=== PATIENT | female | born 1980 | race American Indian/Alaskan Native ===

== ENCOUNTER 2020-06-18 05:15 | Emergency (ER) | payer OTHER ==
[2020-06-18 07:51] LABS: Bilirubin,Urine NEG (Negative); Blood,Urine LG (Negative); Color,Urine Yellow (Yellow); Urobilinogen,Urine < 2.0 mg/dL (<2.0)
[2020-06-18 08:12] LABS: Basophils # (Auto) 0.2 K/mm3 (0.0-0.1); Basophils % (Auto) 1.7 % (0.0-1.8); Eosinophils # (Auto) 0.3 K/mm3 (0.0-0.4); Eosinophils % (Auto) 2.9 % (0.0-4.3); Hematocrit 30.7 % (30.3-42.9); Hemoglobin 10.2 gm/dl (10.1-14.3); Lymphocytes # (Auto) 3.6 K/mm3 (1.2-5.4); Lymphocytes % (Auto) 31.7 % (13.4-35.0); Mean Corpuscular HGB Conc 33 % (30-34); Mean Corpuscular Volume 74 fl (79-97); Monocytes # (Auto) 0.6 K/mm3 (0.0-0.8); Monocytes % (Auto) 5.7 % (0.0-7.3); Platelet Count 298 K/mm3 (140-440); Red Blood Count 4.13 M/mm3 (3.65-5.03); Red Cell Distribution Width 21.7 % (13.2-15.2)
[2020-06-18 08:42] LABS: INR 0.94 (0.87-1.13)
[2020-06-18 08:43] LABS: Partial Thromboplastin Time 27.5 Sec. (24.2-36.6)
[2020-06-18 08:58] LABS: Albumin 3.7 g/dL (3.9-5); Blood Urea Nitrogen 9 mg/dL (7-17); Hemolysis Index 14
[2020-06-18 08:59] LABS: BUN/Creatinine Ratio 15
[2020-06-18 09:10] LABS: Alanine Aminotransferase < 5 units/L (7-56)
[2020-06-18 09:18] VITALS: BP 148/80
[2020-06-18] MEDS ORDERED: KETOROLAC 60 MG/2 ML INJ IM ONE (09:20)
--- NOTE | 2020-06-18 09:20 | Emergency Department Report ---
ED General Adult HPI - General Chief complaint: Vaginal Bleeding Stated complaint: SEVERE VAGINAL BLEEDING Time Seen by Provider: 06/18/20 08:46 Source: patient Mode of arrival: Ambulatory Limitations: No Limitations - History of Present Illness Initial comments: Patient presents to the emergency department the chief complaint of vaginal bleeding that started 2 days ago. Patient states she has a history of abnormal menstrual cycles and was started on Provera in November. Patient states between November and January of this year she was on Provera and it was taken off with normal cycles in February and March. Patient states that for the months of April and May she had no cycle. He states for the last 2 days she has had profuse vaginal bleeding. Patient states that she been seen by Dr. Beck for her dysfunctional uterine bleeding. -: Sudden Severity scale (0 -10): 0 Consistency: constant Improves with: none Worsens with: none Associated Symptoms: denies other symptoms Treatments Prior to Arrival: none - Related Data Previous Rx's Medication Instructions Recorded Last Taken Type Ketorolac [Toradol] 10 mg PO Q6H PRN #12 tablet 06/18/20 Unknown Rx Allergies Allergy/AdvReac Type Severity Reaction Status Date / Time No Known Allergies Allergy Unverified 06/18/20 05:34 ED Review of Systems ROS: Stated complaint: SEVERE VAGINAL BLEEDING Other details as noted in HPI Comment: All other systems reviewed and negative Constitutional: denies: chills, fever Eyes: denies: eye pain, eye discharge, vision change ENT: denies: ear pain, throat pain Respiratory: denies: cough, shortness of breath, wheezing Cardiovascular: denies: chest pain, palpitations Endocrine: no symptoms reported Gastrointestinal: denies: abdominal pain, nausea, diarrhea Genitourinary: denies: urgency, dysuria, discharge Musculoskeletal: denies: back pain, joint swelling, arthralgia Skin: denies: rash, lesions Neurological: denies: headache, weakness, paresthesias Psychiatric: denies: anxiety, depression Hematological/Lymphatic: denies: easy bleeding, easy bruising ED Past Medical Hx - Past Medical History Previous Medical History?: Yes - Surgical History Past Surgical History?: Yes Additional Surgical History: Left knee (ACL) - Social History Smoking Status: Never Smoker Substance Use Type: None - Medications Home Medications: Home Medications Medication Instructions Recorded Confirmed Last Taken Type Ketorolac [Toradol] 10 mg PO Q6H PRN #12 tablet 06/18/20 Unknown Rx ED Physical Exam - General Limitations: No Limitations General appearance: alert, in no apparent distress - Head Head exam: Present: atraumatic, normocephalic - Eye Eye exam: Present: normal appearance - ENT ENT exam: Present: mucous membranes moist - Neck Neck exam: Present: normal inspection - Respiratory Respiratory exam: Present: normal lung sounds bilaterally. Absent: respiratory distress - Cardiovascular Cardiovascular Exam: Present: regular rate, normal rhythm. Absent: systolic murmur, diastolic murmur, rubs, gallop - GI/Abdominal GI/Abdominal exam: Present: soft, normal bowel sounds. Absent: distended, tend erness - Rectal Rectal exam: Present: deferred - External exam: Present: other (deferred) Speculum exam: Present: other (deferred) Bi-manual exam: Present: other (deferred) - Extremities Exam Extremities exam: Present: normal inspection - Back Exam Back exam: Present: normal inspection - Neurological Exam Neurological exam: Present: alert, oriented X3 - Psychiatric Psychiatric exam: Present: normal affect, normal mood - Skin Skin exam: Present: warm, dry, intact, normal color. Absent: rash ED Course Vital Signs 06/18/20 06/18/20 05:22 08:16 Temperature 98.6 F Pulse Rate 93 H Respiratory 18 Rate Blood Pressure 139/86 148/80 O2 Sat by Pulse 100 Oximetry ED Medical Decision Making - Lab Data Result diagrams: 06/18/20 05:47 06/18/20 08:03 Lab Results 06/18/20 06/18/20 06/18/20 Range/Units 05:47 05:47 06:27 WBC 11.3 H (4.5-11.0) K/mm3 RBC 4.13 (3.65-5.03) M/mm3 Hgb 10.2 (10.1-14.3) gm/dl Hct 30.7 (30.3-42.9) % MCV 74 L (79-97) fl MCH 25 L (28-32) pg MCHC 33 (30-34) % RDW 21.7 H (13.2-15.2) % Plt Count 298 (140-440) K/mm3 Lymph % (Auto) 31.7 (13.4-35.0) % [place] % (Auto) 5.7 (0.0-7.3) % Eos % (Auto) 2.9 (0.0-4.3) % Baso % (Auto) 1.7 (0.0-1.8) % Lymph # (Auto) 3.6 (1.2-5.4) K/mm3 [place] # (Auto) 0.6 (0.0-0.8) K/mm3 Eos # (Auto) 0.3 (0.0-0.4) K/mm3 Baso # (Auto) 0.2 H (0.0-0.1) K/mm3 Seg Neutrophils % 58.0 (40.0-70.0) % Seg Neutrophils # 6.6 (1.8-7.7) K/mm3 PT (12.2-14.9) Sec. INR (0.87-1.13) APTT (24.2-36.6) Sec. Sodium (137-145) mmol/L Potassium (3.6-5.0) mmol/L Chloride (98-107) mmol/L Carbon Dioxide (22-30) mmol/L Anion Gap mmol/L BUN (7-17) mg/dL Creatinine (0.6-1.2) mg/dL Estimated GFR ml/min BUN/Creatinine Ratio % Glucose (65-100) mg/dL Calcium (8.4-10.2) mg/dL Total Bilirubin (0.1-1.2) mg/dL AST (5-40) units/L ALT (7-56) units/L Alkaline Phosphatase (35-129) units/L Total Protein (6.3-8.2) g/dL Albumin (3.9-5) g/dL Albumin/Globulin Ratio % HCG, Quant < 2 (0-4) mIU/mL Urine Color Yellow (Yellow) Urine Turbidity Slightly-cloudy (Clear) Urine pH 5.0 (5.0-7.0) Ur Specific [place] 1.019 (1.003-1.030) Urine Protein 30 mg/dl (Negative) mg/dL Urine Glucose (UA) Neg (Negative) mg/dL Urine Ketones Neg (Negative) mg/dL Urine Blood Lg (Negative) Urine Nitrite Neg (Negative) Urine Bilirubin Neg (Negative) Urine Urobilinogen < 2.0 (<2.0) mg/dL Ur Leukocyte Esterase Neg (Negative) Urine WBC (Auto) 1.0 (0.0-6.0) /HPF Urine RBC (Auto) 5.0 (0.0-6.0) /HPF Blood Type 06/18/20 06/18/20 06/18/20 Range/Units 08:03 08:03 Unknown WBC (4.5-11.0) K/mm3 RBC (3.65-5.03) M/mm3 Hgb (10.1-14.3) gm/dl Hct (30.3-42.9) % MCV (79-97) fl MCH (28-32) pg MCHC (30-34) % RDW (13.2-15.2) % Plt Count (140-440) K/mm3 Lymph % (Auto) (13.4-35.0) % [place] % (Auto) (0.0-7.3) % Eos % (Auto) (0.0-4.3) % Baso % (Auto) (0.0-1.8) % Lymph # (Auto) (1.2-5.4) K/mm3 [place] # (Auto) (0.0-0.8) K/mm3 Eos # (Auto) (0.0-0.4) K/mm3 Baso # (Auto) (0.0-0.1) K/mm3 Seg Neutrophils % (40.0-70.0) % Seg Neutrophils # (1.8-7.7) K/mm3 PT 12.8 (12.2-14.9) Sec. INR 0.94 (0.87-1.13) APTT 27.5 (24.2-36.6) Sec. Sodium 135 L (137-145) mmol/L Potassium 4.2 (3.6-5.0) mmol/L Chloride 103.2 (98-107) mmol/L Carbon Dioxide 22 (22-30) mmol/L Anion Gap 14 mmol/L BUN 9 (7-17) mg/dL Creatinine 0.6 (0.6-1.2) mg/dL Estimated GFR > 60 ml/min BUN/Creatinine Ratio 15 % Glucose 158 H (65-100) mg/dL Calcium 9.0 (8.4-10.2) mg/dL Total Bilirubin 0.20 (0.1-1.2) mg/dL AST < 5 L (5-40) units/L ALT < 5 L (7-56) units/L Alkaline Phosphatase 82 (35-129) units/L Total Protein 7.3 (6.3-8.2) g/dL Albumin 3.7 L (3.9-5) g/dL Albumin/Globulin Ratio 1.0 % HCG, Quant (0-4) mIU/mL Urine Color (Yellow) Urine Turbidity (Clear) Urine pH (5.0-7.0) Ur Specific [place] (1.003-1.030) Urine Protein (Negative) mg/dL Urine Glucose (UA) (Negative) mg/dL Urine Ketones (Negative) mg/dL Urine Blood (Negative) Urine Nitrite (Negative) Urine Bilirubin (Negative) Urine Urobilinogen (<2.0) mg/dL Ur Leukocyte Esterase (Negative) Urine WBC (Auto) (0.0-6.0) /HPF Urine RBC (Auto) (0.0-6.0) /HPF Blood Type AB POSITIVE - Radiology Data Radiology results: report reviewed - Medical Decision Making Discussed results with patient Critical care attestation.: If time is entered above; I have spent that time in minutes in the direct care of this critically ill patient, excluding procedure time. ED Disposition Clinical Impression: DUB (dysfunctional uterine bleeding), Fibroid, Endometrial polyp, Ovarian cyst Disposition: TO HOME OR SELFCARE Is pt being admited?: No Does the pt Need Aspirin: No Condition: Stable Instructions: Dysfunctional Uterine Bleeding (ED), Uterine Fibroids (ED), Ovarian Cyst (ED) Additional Instructions: return if worse Referrals: MIKE FAGAN MD [Staff Physician] - 3-5 Days Time of Disposition: 11:37
--- NOTE | 2020-06-18 11:01 | Ultrasound Report ---
ULTRASOUND PELVIS COMPLETE ULTRASOUND TRANSVAGINAL INDICATION / CLINICAL INFORMATION: Vaginal bleeding. TECHNIQUE: Transabdominal and Transvaginal. Duplex Color Doppler used: Yes. COMPARISON: None available FINDINGS: UTERUS: Anteverted - Appearance (if present): No significant abnormality. - Size in cm (if present): 9.4 x 3.9 x 5.4 cm. - Endometrial Complex (if present): There is an echogenic area with increased vascularity in the endo metrium measuring 1.5 x 1.0 x 1.6 cm which may represent an endometrial polyp. Thickness in cm (if me asured) = 0.15 cm - Mass lesions: An approximate 1.5 cm hypoechoic fundal fibroid is identified. No large submucosal fi broid. - Additional findings: None. RIGHT ADNEXA: A 1.6 cm cyst is identified. Normal color Doppler blood flow. The right ovary measures 3.4 x 1.9 x 2.1 cm LEFT ADNEXA: No significant ovarian cyst or mass. Normal color Doppler blood flow. The left ovary michelle sures 2.2 x 4.0 x 2.7 cm URINARY BLADDER: No significant abnormality. FREE FLUID: None. ADDITIONAL FINDINGS: None. IMPRESSION: Possible endometrial polyp as described. Small fundal fibroid. 1.6 cm right ovarian cyst. Signer Name: Eliazar Naisl Jr, MD Signed: 06/18/2020 10:57 AM Workstation Name: [id number]
== END 2020-06-18 12:31 | disposition home or self-care (01) ==
LOC: ED 05:15
DX: N84.0 Polyp of corpus uteri (principal); N93.8 Other specified abnormal uterine and vaginal bleeding; D21.9 Benign neoplasm of connective and other soft tissue, unspecified; N83.209 Unspecified ovarian cyst, unspecified side; Z98.890 Other specified postprocedural states; Z79.899 Other long term (current) drug therapy
CPT/HCPCS: 36415; 76830; 76856; 80053; 81001; 84702; 85025; 85610; 85730; 86900; 86901; 96372; 99284; J1885